=== PATIENT | female | born 1990 | race Caucasian/White ===

== ENCOUNTER 2017-04-03 23:48 | Emergency (ER) | payer MEDICAID, OTHER ==
[2017-04-04 00:03] VITALS: O2SAT 95
--- NOTE | 2017-04-04 00:18 | EDPHY ---
H & P Stated Complaint: pelvic pain after intercourse Time Seen by Provider: 04/04/17 00:11 HPI/ROS: CHIEF COMPLAINT: Vaginal pain HISTORY OF PRESENT ILLNESS: Patient is a healthy 26-year-old female who comes to the emergency department complaining of vaginal pain that began during intercourse. She states that they had just changed positions with her partner which she had a sudden jolt of pain and had to stop. She has not had any bleeding. She does state that she has had mild urinary symptoms over the last 2 days. She states that she has felt incomplete emptying. She does not have any burning or dysuria or hematuria. She is not currently menstruating. She denies risk of and states that they have been using condoms. REVIEW OF SYSTEMS: Constitutional: denies: chills, fever, recent illness, recent injury EENTM: denies: blurred vision, double vision, nose congestion Respiratory: denies: cough, shortness of breath Cardiac: denies: chest pain, irregular heart rate, lightheadedness, palpitations Gastrointestinal/Abdominal: denies: abdominal pain, diarrhea, nausea, vomiting, blood streaked stools Genitourinary: See HPI Musculoskeletal: denies: joint pain, muscle pain Skin: denies: lesions, rash, jaundice, bruising Neurological: denies: headache, numbness, paresthesia, tingling, dizziness, weakness Hematologic/Lymphatic: denies: blood clots, easy bleeding, easy bruising Immunologic/allergic: denies: HIV/AIDS, transplant EXAM: GENERAL: Well-appearing, well-nourished and in no acute distress. HEAD: Atraumatic, normocephalic. EYES: Pupils equal round and reactive to light, extraocular movements intact, sclera anicteric, conjunctiva are normal. ENT: TMs normal, nares patent, oropharynx clear without exudates. Moist mucous membranes. NECK: Normal range of motion, supple without lymphadenopathy or JVD. LUNGS: Breath sounds clear to auscultation bilaterally and equal. No wheezes rales or rhonchi. HEART: Regular rate and rhythm without murmurs, rubs or gallops. ABDOMEN: Soft, nontender, normoactive bowel sounds. No guarding, no rebound. No masses appreciated. : No visible lacerations or contusions. No discharge. No tenderness on exam. No adnexal fullness BACK: No CVA tenderness, no spinal tenderness, step-offs or deformities EXTREMITIES: Normal range of motion, no pitting or edema. No clubbing or cyanosis. NEUROLOGICAL: Cranial nerves II through XII grossly intact. Normal speech, normal gait. 5/5 strength, normal movement in all extremities, normal sensation PSYCH: Normal mood, normal affect. SKIN: Warm, dry, normal turgor, no visible rashes or lesions. Source: Patient Exam Limitations: No limitations - Personal History LMP (Females 10-55): 8-14 Days Ago Current Tetanus/Diphtheria Vaccine: Yes Current Tetanus Diphtheria and Acellular Pertussis (TDAP): Yes Tetanus Vaccine Date: 2015 - Medical/Surgical History Hx Asthma: No Hx Chronic Respiratory Disease: No Hx Diabetes: No Hx Cardiac Disease: No Hx Renal Disease: No Hx Cirrhosis: No Hx Alcoholism: No Hx HIV/AIDS: No Hx Splenectomy or Spleen Trauma: No Other PMH: Appy, depression - Family History Significant Family History: No pertinent family hx - Social History Smoking Status: Current some day smoker Alcohol Use: Sober Drug Use: None Constitutional: Initial Vital Signs Temperature (C) 36.7 C 04/03/17 23:59 Heart Rate 92 04/03/17 23:59 Respiratory Rate 18 04/03/17 23:59 Blood Pressure 83/44 L 04/03/17 23:59 O2 Sat (%) 95 04/03/17 23:59 O2 Delivery Mode Room Air Allergies/Adverse Reactions: No Known Allergies Allergy (Verified 03/01/16 13:08) Home Medications: Medication Instructions Recorded NK [No Known Home Meds] 04/03/17 Medical Decision Making ED Course/Re-evaluation: Patient's blood pressure was low at triage but when rechecked in the room was normal. The patient has a normal pelvic exam. She states that the pain she was having is now resolved. We will check her urine otherwise she feels reassured. 1:40 a.m. the patient remains asymptomatic. We discussed her urine results. She has trace leuk esterase. She is relatively asymptomatic. We decided to wait and treat if further symptoms develop. Differential Diagnosis: Partial list of the Differential diagnosis considered include but were not limited to; urinary tract infection, vaginal trauma, tear and although unlikely based on the history and physical exam, I also considered infection, ovarian cyst, ovarian torsion. I discussed these differential diagnoses and the plan with the patient as well as the usual and expected course. The patient understands that the diagnosis is provisional and that in medicine we are not always correct and that further workup is often warranted. Usual and customary warnings were given. All of the patient's questions were answered. The patient was instructed to return to the emergency department should the symptoms at all worsen or return, otherwise to followup with the physician as we discussed. - Data Points Laboratory Results: 04/04/17 00:23 Urine Color YELLOW Urine Appearance CLEAR Urine pH 7.0 (5.0-7.5) Ur Specific [place] 1.009 (1.002-1.030) Urine Protein NEGATIVE (NEGATIVE) Urine Ketones NEGATIVE (NEGATIVE) Urine Blood NEGATIVE (NEGATIVE) Urine Nitrate NEGATIVE (NEGATIVE) Urine Bilirubin NEGATIVE (NEGATIVE) Urine Urobilinogen NEGATIVE EU EU (0.2-1.0) Ur Leukocyte Esterase TRACE H (NEGATIVE) Urine RBC 1-3 /hpf /hpf (0-3) Urine WBC 1-3 /hpf /hpf (0-3) Ur Epithelial Cells TRACE /lpf /lpf (NONE-1+) Urine Bacteria TRACE /hpf H /hpf (NONE SEEN) Urine Mucus TRACE /lpf /lpf (NONE-1+) Urine Glucose NEGATIVE (NEGATIVE) Departure - Departure Disposition: Home, Routine, Self-Care Clinical Impression: Vaginal pain Condition: Fair Instructions: Pelvic Pain (ED) Referrals: Nancy Frias DO [Primary Care Provider] - As per Instructions
[2017-04-04 00:58] LABS: COLOR YELLOW; LEUKOCYTE ESTERASE,URINE TRACE (NEGATIVE); NITRITE,URINE NEGATIVE (NEGATIVE)
[2017-04-04 01:05] LABS: BACTERIA TRACE /hpf (NONE SEEN); MUCUS TRACE /lpf (NONE-1+)
[2017-04-04 02:11] VITALS: BP 108/63; PULSE 63; RESP 16; TEMP 97.9
== END 2017-04-04 02:11 | disposition home or self-care (01) ==
DX: R10.2 Pelvic and perineal pain (principal); F17.200 Nicotine dependence, unspecified, uncomplicated